=== PATIENT | female | born 1985 | race Two or more races ===

== ENCOUNTER 2017-02-10 12:57 | Emergency (ER) | payer MEDICAID ==
[~2017-02-10] VITALS: Ht 152.4 cm; Wt 65.8 kg
[~2017-02-10 12:57] MED LIST: NORPTMEDS CO
[2017-02-10 14:27] VITALS: BP 118/82
[2017-02-10 15:00] LABS: Basophils # (auto) 0.1 uL; Basophils % (auto) 0.5 % (0.0-2.0); Eosinophils # (auto) 0.1 uL; Eosinophils % (auto) 1.5 % (0.0-7.0); Hematocrit 42.2 % (36.0-46.0); Hemoglobin 14.1 g/dL (12.2-16.2); Lymphocytes # (auto) 1.9 uL; Lymphocytes % (auto) 19.6 % (10.0-50.0); Mean Corpuscular Hgb Conc. 33.4 g/dL (32.0-36.0); Mean Corpuscular Volume 89.9 fL (80.0-100.0); Mean Platelet Volume 7.6 fL (6.9-10.8); Monocytes # (auto) 0.6 uL; Monocytes % (auto) 6.5 % (0.0-12.0); Neutrophils # (auto) 7.1 uL; Neutrophils % (auto) 71.9 % (37.0-80.0); Platelet Count (auto) 250 10^3/uL (140-450); Red Cell Distribution Width 14.3 % (11.8-14.3); White Blood Cell 9.9 10^3/uL (4.4-10.8)
[2017-02-10 16:21] LABS: Urine Bilirubin Negative (Negative); Urine Blood 2+ /uL (Negative); Urine Color Yellow (Yellow); Urine Glucose Normal (Normal); Urine Ketone Negative (Negative); Urine Nitrite Negative (Negative); Urine RBC 3 /hpf (0 - 4); Urine Squamous Epithelial Cell FEW /hpf (<5); Urine Urobilinogen Normal (Negative)
== END 2017-02-10 16:16 | disposition home or self-care (01) ==
LOC: ER 13:14
DX: O20.0 Threatened abortion (principal); O26.851 Spotting complicating pregnancy, first trimester; Z3A.01 Less than 8 weeks gestation of pregnancy
CPT/HCPCS: 36415; 76801; 76817; 81001; 81002; 84702; 85025

== ENCOUNTER 2017-08-06 11:19 | Emergency (ER) | payer MEDICAID ==
[2017-08-06 12:04] VITALS: BP 112/67
== END 2017-08-06 12:51 | disposition home or self-care (01) ==
LOC: ER 11:19
DX: O99.713 Diseases of the skin and subcutaneous tissue complicating pregnancy, third trimester (principal); O26.893 Other specified pregnancy related conditions, third trimester; L20.9 Atopic dermatitis, unspecified; Z3A.32 32 weeks gestation of pregnancy

== ENCOUNTER 2017-08-11 17:10 | Observation (INO) | payer MEDICAID ==
[2017-08-11] MEDS ORDERED: PREN-96 PO (18:16)
[2017-08-11 19:11] LABS: Basophils # (auto) 0 uL; Basophils % (auto) 0.3 % (0.0-2.0); Eosinophils # (auto) 0.1 uL; Eosinophils % (auto) 1.1 % (0.0-7.0); Hematocrit 36.4 % (36.0-46.0); Hemoglobin 12.5 g/dL (12.2-16.2); Lymphocytes # (auto) 1.4 uL; Lymphocytes % (auto) 16.6 % (10.0-50.0); Mean Corpuscular Hemoglobin 32.7 pg (28.0-32.0); Mean Corpuscular Hgb Conc. 34.4 g/dL (32.0-36.0); Mean Corpuscular Volume 94.9 fL (80.0-100.0); Monocytes # (auto) 0.7 uL; Monocytes % (auto) 7.8 % (0.0-12.0); Neutrophils # (auto) 6.3 uL; Neutrophils % (auto) 74.2 % (37.0-80.0); Platelet Count (auto) 241 10^3/uL (140-450); Red Blood Cells 3.84 10^6/uL (4.0-5.20); Red Cell Distribution Width 13.2 % (11.8-14.3); White Blood Cell 8.6 10^3/uL (4.4-10.8)
[2017-08-11 19:31] LABS: Albumin 2.8 g/dL (3.4-5.0); BUN/Creatinine Ratio 22.2; Bilirubin, Total 0.3 mg/dL (0.2-1.0); Calcium 8.4 mg/dL (8.5-10.1); Potassium 3.6 mmol/L (3.5-5.1); Total Protein 6.5 g/dL (6.4-8.2)
== END 2017-08-11 20:01 | disposition home or self-care (01) | DRG 566 ==
LOC: LDRP 17:10 → UNDODISOB 20:01
PROVIDERS: ADMIT Obstetrics & Gynecology; ATTEND Obstetrics & Gynecology
DX: O26.893 Other specified pregnancy related conditions, third trimester (principal); L29.9 Pruritus, unspecified; R21 Rash and other nonspecific skin eruption; Z3A.32 32 weeks gestation of pregnancy
CPT/HCPCS: 36415; 59025; 80053; 81002; 85025; G0378

== ENCOUNTER 2017-08-22 17:30 | Observation (INO) | payer MEDICAID ==
[~2017-08-22 17:30] MED LIST changes: -NORPTMEDS CO; +PREN-96 PO
== END 2017-08-22 20:30 | disposition home or self-care (01) | DRG 566 ==
LOC: LDRP 17:30
PROVIDERS: ADMIT Obstetrics & Gynecology; ATTEND Obstetrics & Gynecology
DX: O26.613 Liver and biliary tract disorders in pregnancy, third trimester (principal); K83.1 Obstruction of bile duct; Z3A.34 34 weeks gestation of pregnancy
CPT/HCPCS: 59025; 76815; 76818; 81002; G0378

== ENCOUNTER 2017-08-25 19:15 | Observation (INO) | payer MEDICAID ==
[2017-08-25 20:38] LABS: Urine Bacteria FEW /hpf (None Seen); Urine Blood 1+ /uL (Negative); Urine Mucus FEW (None Seen); Urine Specific Gravity 1.014 (1.001-1.035); Urine WBC 3 /hpf (0 - 5)
[2017-08-25] MEDS ORDERED: URSO300C9 PO (20:52)
== END 2017-08-25 21:17 | disposition home or self-care (01) | DRG 566 ==
LOC: LDRP 19:15
PROVIDERS: ADMIT Specialist; ATTEND Specialist
DX: O26.613 Liver and biliary tract disorders in pregnancy, third trimester (principal); K83.1 Obstruction of bile duct; Z3A.34 34 weeks gestation of pregnancy
CPT/HCPCS: 59025; 76818; 81001; 81002; G0378

== ENCOUNTER 2017-08-29 17:30 | Observation (INO) | payer MEDICAID ==
[~2017-08-29 17:30] MED LIST changes: +URSO300C9 PO
== END 2017-08-29 18:40 | disposition home or self-care (01) | DRG 566 ==
LOC: LDRP 17:30
PROVIDERS: ADMIT Specialist; ATTEND Specialist
DX: O26.893 Other specified pregnancy related conditions, third trimester (principal); Z3A.35 35 weeks gestation of pregnancy
CPT/HCPCS: 59025; 76818; 81002; G0378

== ENCOUNTER 2017-09-02 18:30 | Observation (INO) | payer MEDICAID | END 2017-09-02 21:56 | disposition home or self-care (01) | DRG 566 | LOC: LDRP 18:30 | PROVIDERS: ADMIT Obstetrics & Gynecology; ATTEND Obstetrics & Gynecology | DX: O26.613 Liver and biliary tract disorders in pregnancy, third trimester (principal); K83.1 Obstruction of bile duct; Z3A.36 36 weeks gestation of pregnancy | CPT/HCPCS: 76818; G0378; 59025; 81002 ==

== ENCOUNTER 2017-09-05 19:10 | Observation (INO) | payer MEDICAID | END 2017-09-05 20:40 | disposition home or self-care (01) | DRG 566 | LOC: LDRP 19:10 | PROVIDERS: ADMIT Obstetrics & Gynecology; ATTEND Obstetrics & Gynecology | DX: O26.893 Other specified pregnancy related conditions, third trimester (principal); Z3A.36 36 weeks gestation of pregnancy | CPT/HCPCS: 59025; 71045; 76818; 81002; G0378 ==

== ENCOUNTER 2017-09-08 17:40 | Observation (INO) | payer MEDICAID | END 2017-09-08 19:28 | disposition home or self-care (01) | DRG 566 | LOC: LDRP 17:40 | PROVIDERS: ADMIT Obstetrics & Gynecology; ATTEND Obstetrics & Gynecology | DX: O26.613 Liver and biliary tract disorders in pregnancy, third trimester (principal); K83.1 Obstruction of bile duct; Z3A.36 36 weeks gestation of pregnancy | CPT/HCPCS: 59025; 76818; 81002; G0378 ==